=== PATIENT | male | born 1985 | race Caucasian/White ===

== ENCOUNTER → 2019-05-06 | Outpatient (CLI) | payer OTHER ==
--- NOTE | 2019-05-06 09:24 | RAD ---
CT STUDY OF THE LUMBAR SPINE WITHOUT CONTRAST Clinical indications: Low back pain. History of lumbar fusion. COMPARISON: None available. TECHNIQUE: Noncontrast helical CT scanning of the lumbar spine was performed. Multiplanar 2-D reconstructions were generated. PQRS compliance Statement One or more of the following individualized dose reduction techniques were utilized for this study: 1. Automated exposure control 2. Adjustment of the mA and/or kV according to patient size 3. Use of iterative reconstruction technique FINDINGS: The transverse processes are intact. No compression fracture or discitis or lytic process is evident. Bilateral transpedicular screws are seen at L4 and L5 and S1 connected by 2 vertical metallic stabilizer bars. There is streaking artifact as a result. There is lucency around the transpedicular screws of S1. This may represent postoperative finding but loosening cannot be excluded without old studies for comparison. Laminectomy of L5 is seen. There is retrolisthesis of L2-3 through L5-S1. This is most prominent at L5-S1 and measures 7 mm at L5-S1. At L1-L2, no focal disc protrusion or spinal canal stenosis or neural foraminal narrowing is seen. At L2-L3, no focal disc protrusion or spinal canal stenosis or neural foraminal narrowing is seen. At L3-L4, no focal disc protrusion or spinal canal stenosis is seen. There is moderate narrowing of the neural foramina bilaterally. At L4-5, mild diffuse disc protrusion is seen is narrowing of the upper lateral recesses bilaterally both sides as a result. No significant spinal canal stenosis is evident. There is mild narrowing of the right neural foramen and moderate narrowing of the left neural foramen. At L5-S1, there is degenerative endplate spurring and diffuse disc protrusion. There is facet spurring at this level. Facet spurring and endplate spurring results in severe narrowing of the neural foramina bilaterally at this level. There is a decompressive laminectomy and therefore no spinal canal stenosis is seen. There is narrowing of the upper lateral recesses bilaterally. IMPRESSION: Posterior fusion and L4 through S1 with laminectomy of L5. Multilevel retrolisthesis most prominent at L5-S1. Multilevel narrowing of the neural foramina most prominent at L5-S1 bilaterally. There is narrowing of the upper lateral recesses at this level as well. Lucency around the transpedicular screws bilaterally at S1 which may be a postoperative finding but loosening cannot be excluded without old studies for comparison. Electronically signed by: Demian Lambert MD (05/06/2019 9:22 AM) [id number]
== END | disposition home or self-care (01) ==
LOC: CT 07:52
DX: M51.27 Other intervertebral disc displacement, lumbosacral region (principal); M48.07 Spinal stenosis, lumbosacral region; M46.07 Spinal enthesopathy, lumbosacral region; M96.1 Postlaminectomy syndrome, not elsewhere classified; M43.26 Fusion of spine, lumbar region; M53.87 Other specified dorsopathies, lumbosacral region
CPT/HCPCS: 72131

== ENCOUNTER 2019-12-21 10:08 | Emergency (ER) | payer OTHER ==
[~2019-12-21] VITALS: Ht 182.9 cm; Wt 112.0 kg
[2019-12-21 10:17] VITALS: BP 164/93
[2019-12-21] MEDS ORDERED: CEPH-264 PO (10:45)
[2019-12-21] MEDS ORDERED: HYDR-3165 PO (10:45)
--- NOTE | 2019-12-21 10:45 | PHYS DOC ---
Past History Past Medical History: Anxiety, Depression, Other Additional Past Medical Histor: ED Past Surgical History: Other Additional Past Surgical Histo: Neck fusion Alcohol Use: Occasionally General Adult EDM: Chief Complaint: INSECT BITE HPI: HPI: 34-year-old male presents with spider bite of the right inner thigh. The patient sustained this bite 2 days ago. It was a brown recluse. The patient found the spider and killed it. 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 He presents today because his family is concerned. The patient developed generally erythematous skin all over his body yesterday and today he states that the site is very painful and he has generalized itching everywhere. He tells me that his generalized red skin is slightly better today than yesterday. He has not been out in the sun. There is no other alternative explanation for his skin color. He denies fever or chills. He has been taking some Benadryl without much effect. Review of Systems: Review of Systems: Constitutional: Denies fever or chills Eyes: Denies change in visual acuity HENT: Denies nasal congestion or sore throat Respiratory: Denies cough or shortness of breath Cardiovascular: Denies chest pain or edema GI: Denies abdominal pain, nausea, vomiting, bloody stools or diarrhea : Denies dysuria Musculoskeletal: Denies back pain or joint pain Integument: Rash Neurologic: Denies headache, focal weakness or sensory changes Endocrine: Denies polyuria or polydipsia Lymphatic: Denies swollen glands Psychiatric: Denies depression or anxiety Heart Score: Risk Factors: Risk Factors: DM, Current or recent (<one month) smoker, HTN, HLP, family history of CAD, obesity. Risk Scores: Score 0 - 3: 2.5% MACE over next 6 weeks - Discharge Home Score 4 - 6: 20.3% MACE over next 6 weeks - Admit for Clinical Observation Score 7 - 10: 72.7% MACE over next 6 weeks - Early Invasive Strategies Allergies: Allergies: Allergies Coded Allergies Type Severity Reaction Last Updated Verified No Known Drug Allergies 12/21/19 No Physical Exam: PE: Constitutional: Well developed, well nourished, no acute distress, non-toxic appearance. [] HENT: Normocephalic, atraumatic, bilateral external ears normal, oropharynx moist, no oral exudates, nose normal. [] Eyes: PERRLA, EOMI, conjunctiva normal, no discharge. [] Neck: Normal range of motion, no tenderness, supple, no stridor. [] Cardiovascular:Heart rate regular rhythm, no murmur [] Lungs & Thorax: Bilateral breath sounds clear to auscultation [] Abdomen: Bowel sounds normal, soft, no tenderness, no masses, no pulsatile masses. [] Skin: Warm, generally erythematous skin. The site of the bite is more erythematous, but not warm to the touch. 1 to 2 mm central pale area. No fluctuance or abscess identified. [] Back: No tenderness, no CVA tenderness. [] Extremities: No tenderness, no cyanosis, no clubbing, ROM intact, no edema. [] Neurologic: Alert and oriented X 3, normal motor function, normal sensory function, no focal deficits noted. [] Psychologic: Affect normal, judgement normal, mood normal. [] Current Patient Data: Vital Signs: Vital Signs Date Time Temp Pulse Resp B/P (MAP) Pulse Ox O2 Delivery O2 Flow Rate FiO2 12/21/19 10:17 98.2 80 18 164/93 (116) 99 Room Air EKG: EKG: [] Radiology/Procedures: Radiology/Procedures: [] Course & Med Decision Making: Course & Med Decision Making Pertinent Labs and Imaging studies reviewed. (See chart for details) I reviewed the literature on up-to-date and there is no specific treatment for the patient's systemic symptoms. These are likely to self resolve. Will discharge him with a prescription for Keflex for 7 days and a short course of [place] for his discomfort. I do not believe the Benadryl is contraindicated. He can continue this. He is stable for discharge at this time. [] Dragon Disclaimer: Dragon Disclaimer: This electronic medical record was generated, in whole or in part, using a voice recognition dictation system. Departure Departure: Impression: Primary Impression: Brown recluse spider bite Qualified Codes: T63.331A - Toxic effect of venom of brown recluse spider, accidental (unintentional), initial encounter Disposition: HOME, SELF-CARE Condition: STABLE Referrals: JESSICA MATTHEW (PCP) Patient Instructions: Brown Recluse Spider Bite, [id number] Scripts Cephalexin (KEFLEX) 500 Mg Capsule 1 CAP PO TID for spider bite for 7 Days, #21 CAP 0 Refills Prov: ALECIA NUNN DO 12/21/19 Hydrocodone Bit/Acetaminophen (NORCO 5-325 TABLET) 1 Each Tablet 1 TAB PO PRN Q6HRS PRN for PAIN, #10 TAB 0 Refills Prov: ALECIA NUNN DO 12/21/19 ALECIA NUNN DO Dec 21, 2019 10:45
== END 2019-12-21 10:50 | disposition home or self-care (01) ==
LOC: ER 10:08
DX: T63.331A Toxic effect of venom of brown recluse spider, accidental (unintentional), initial encounter (principal); L29.9 Pruritus, unspecified; Y92.89 Other specified places as the place of occurrence of the external cause
CPT/HCPCS: 99283